=== PATIENT | male | born 1975 | race Caucasian/White ===

== ENCOUNTER 2019-05-09 09:47 | Emergency (ER) | payer OTHER, SELFPAY ==
--- NOTE | ~2019-05-09 | XR_ITS ---
XR shoulder RT min 2V DATE: 05/09/2019 10:02 INDICATION: Anterior superior right shoulder pain/bump TECHNIQUE: 4 views COMPARISON: None FINDINGS: No fracture, dislocation, periosteal reaction or bone destruction. Normal alignment at the acromioclavicular and glenohumeral joints. No abnormal soft tissue calcification. IMPRESSION: Negative Reviewed, dictated and finalized at location A. IMPRESSION: Negative
[2019-05-09 09:58] VITALS: BP 138/88; PULSE 71; RESP 16; TEMP 36.9; O2SAT 100
--- NOTE | 2019-05-09 11:07 | ED.UPPEXIN ---
HPI - Extremity Injury (Upper) General Chief Complaint: Extremity Injury, Upper <Jolanta Michelle PA-C - Last Filed: 05/09/19 11:18> Stated Complaint: right shoulder pain/fall <Jolanta Michelle PA-C - Last Filed: 05/09/19 11:18> Time Seen by Provider: 05/09/19 09:50 <Jolanta Michelle PA-C - Last Filed: 05/09/19 11:18> Source: patient <Jolanta Michelle PA-C - Last Filed: 05/09/19 11:18> Mode of arrival: ambulatory <BAR Ackerman Last Filed: 05/09/19 11:18> Limitations: no limitations <Jolanta Michelle PA-C - Last Filed: 05/09/19 11:18> History of Present Illness HPI narrative: Patient presents with chief complaint of anterior right shoulder pain that began after tripping down the last step with 2 while at a fire earlier this morning. Patient states he believes he put his hand outward and landed but he is not sure. Patient denies any loss of range of motion but reports some discomfort with some movements. Patient denies any weakness in the extremity. Patient denies any head injury, neck pain, loss of consciousness, chest pain, shortness of breath, nausea, vomiting, diarrhea, changes in vision or hearing or any other symptoms. Patient reports his medical history is significant for hypertension but denies any other health concerns. <Jolanta Michelle PA-C - Last Filed: 05/09/19 11:18> Related Data Home Medications: Home Medications Medication Instructions Recorded Confirmed amlodipine 5 mg tablet 5 mg PO DAILY 01/13/19 irbesartan 300 mg tablet 300 mg PO DAILY 01/13/19 <BAR Ackerman Last Filed: 05/09/19 11:18> Allergies/Adverse Reactions: Allergies Allergy/AdvReac Type Severity Reaction Status Date / Time No Known Allergies Allergy Verified 01/13/19 11:29 <Jolanta Michelle PA-C - Last Filed: 05/09/19 11:18> Review of Systems Review of Systems: Narrative: CONSTITUTIONAL: Denies fever, chills, or sweats. EYES: Denies visual changes, redness, or discharge. ENT: Denies rhinorrhea, congestion, sore throat, or otalgia. CARDIOVASCULAR: Denies chest pain, palpitations, or edema. RESPIRATORY: Denies cough or dyspnea. GASTROINTESTINAL: Denies abdominal pain, nausea, vomiting, or diarrhea. GENITOURINARY: Denies dysuria or hematuria. SKIN: Denies rash or itching. MUSCULOSKELETAL: Reports right shoulder pain denies back pain or myalgia. NEUROLOGIC: Denies headache, numbness, dizziness, or weakness. PSYCHIATRIC: Denies anxiety or depression. <Jolanta Michelle PA-C - Last Filed: 05/09/19 11:18> [facility] Past Medical History Medical History: Medical History (Updated 05/09/19 @ 11:14 by Jolanta Michelle PA-C) Hypertension <Jolanta Michelle PA-C - Last Filed: 05/09/19 11:18> Family History Family History: Family History (Updated 09/22/15 @ 23:19 by DOCTOR UNKNOWN) Mother Family history of mental disorder Depression Father Depression Family history of diabetes mellitus in first degree relative <Jolanta Michelle PA-C - Last Filed: 05/09/19 11:18> Social History Social History: Social History Smoking status: Former smoker Smoking end date: 02/24/09 Alcohol intake: current Gender identity (if verbalized by the patient): Male <Jolanta Michelle PA-C - Last Filed: 05/09/19 11:18> Exam Narrative: Exam Narrative: GENERAL: Well-appearing, well-nourished, and in no acute distress. HEAD: Normocephalic, atraumatic. No outward signs of injury or tenderness. EYES: PERRLA and EOMI. ENT: Nares clear, no rhinorrhea or epistaxis. Mucous membranes moist. Oropharynx without tonsillar hypertrophy exudate or other lesions. Bilateral TMs pearly fierro nonbulging NECK: Nontender to palpation. No loss of range of motion. Supple. No adenopathy or masses. CHEST: Clear to auscultation. No respiratory distress. No wheezes rales or rhonchi HEART: Regular rate and rhythm. EXTREMITIES: Normal range of motion. Slight pain elicited with external rot
[2019-05-09 11:40] VITALS: BP 136/65; PULSE 72; RESP 16; O2SAT 99
== END 2019-05-09 11:47 | disposition home or self-care (01) ==
PROVIDERS: Emergency Provider General Practice; PCP Family Medicine
DX: S46.911A Strain of unspecified muscle, fascia and tendon at shoulder and upper arm level, right arm, initial encounter (principal); I10 Essential (primary) hypertension; W10.9XXA Fall (on) (from) unspecified stairs and steps, initial encounter
CPT/HCPCS: 73030; 99283

== ENCOUNTER 2022-12-05 08:16 | Outpatient (CLI) | payer OTHER, SELFPAY ==
[2022-12-05 09:23] LABS: Hematocrit 44.4 % (42.0-52.0); Hemoglobin 15.5 g/dL (14.0-18.0); Mean Corpuscular HGB Conc 34.9 g/dl (32-36); Mean Corpuscular Hemoglobin 33.5 pg (26-34); Mean Corpuscular Volume 96.1 fl (80-100); Mean Platelet Volume 10.5 fl (7.4-10.4); Platelet Count Result 196 k/mm3 (150-375); Red Blood Count 4.62 M/mm3 (4.6-6.20); Red Cell Distribution Width 12.1 % (11.5-14.5)
[2022-12-05 09:39] LABS: Alanine Aminotransferase 28 U/L (6-50); Albumin Level 4.4 g/dL (3.5-5.1); Alkaline Phosphatase 44 U/L (38-126); Anion Gap 7 mmol/L (8-16); Aspartate Amino Transferase 24 U/L (17-59); Bilirubin,Total 0.7 mg/dL (0.2-1.3); Blood Urea Nitrogen 13 mg/dL (9-20); Carbon Dioxide 28 mmol/L (22-30); Chloride 101 mmol/L (98-107); Cholesterol 158 mg/dL (0-200); Estimated Glomerular Filt Rate > 60; Glucose 97 mg/dL (65-110); HDL Direct 54 mg/dL; Potassium 3.9 mmol/L (3.4-5.0); Sodium 136 mmol/L (137-145); Triglycerides 132 mg/dL (<150)
[2022-12-05 09:45] LABS: Add Urine Microscopic? NO; Appearance Urine Clear (Clear); Bilirubin Urine Negative (Negative); Blood Urine Negative (Negative); Color Urine Yellow (Yellow); Glucose Urine UA Negative (Negative); Ketones Urine Negative (Negative); Leukocyte Esterase Ur Negative LEU/UL (NEGATIVE); Nitrate Urine Negative (Negative); Protein Urine Negative (Negative); Urobilinogen Urine 0.2 mg/dL (<2.0); pH Urine 6.5 (5.0-9.0)
[2022-12-05 09:50] LABS: LDL Cholesterol Direct 78 mg/dL
[2022-12-05 10:05] LABS: Hemoglobin A1C 4.6 % (<5.7)
== END 2022-12-05 08:17 | disposition home or self-care (01) ==
LOC: ANHLAB 08:17
PROVIDERS: PCP Family Medicine; Visit Provider Family Medicine
DX: E78.1 Pure hyperglyceridemia (principal); I10 Essential (primary) hypertension; R73.01 Impaired fasting glucose; Z00.00 Encounter for general adult medical examination without abnormal findings
CPT/HCPCS: 36415; 80053; 80061; 81003; 83036; 84443; 85027

== ENCOUNTER 2023-05-12 09:23 | Outpatient (CLI) | payer OTHER, SELFPAY ==
[2023-05-12 10:27] LABS: Alanine Aminotransferase 20 U/L (6-50); Albumin Level 4.7 g/dL (3.5-5.1); Alkaline Phosphatase 50 U/L (38-126); Anion Gap 8 mmol/L (8-16); Aspartate Amino Transferase 23 U/L (17-59); Bilirubin,Total 1.1 mg/dL (0.2-1.3); Blood Urea Nitrogen 10 mg/dL (9-20); Calcium 9.4 mg/dL (8.4-10.2); Carbon Dioxide 27 mmol/L (22-30); Chloride 103 mmol/L (98-107); Estimated Glomerular Filt Rate > 60; Glucose 105 mg/dL (65-110); Potassium 3.9 mmol/L (3.4-5.0); Sodium 138 mmol/L (137-145)
== END 2023-05-12 09:24 | disposition home or self-care (01) ==
LOC: ANHLAB 09:24
PROVIDERS: PCP Family Medicine; Visit Provider Family Medicine
DX: I10 Essential (primary) hypertension (principal)
CPT/HCPCS: 36415; 80053

== ENCOUNTER 2023-06-12 07:49 | Day surgery (SDC) | payer OTHER, SELFPAY ==
[2023-05-06 11:47] VITALS: BMI 29.5
[2023-06-12 09:00] VITALS: BP 130/99; PULSE 68; RESP 18; TEMP 36.6; O2SAT 99; BMI 29.5
[2023-06-12] MEDS: LACTATED RINGERS 1,000 ML 150 ML IV CONT (09:09)
--- NOTE | 2023-06-12 09:13 | WPDANESEPPF ---
Anes - Initial Pre Proc Eval Procedure: Operation Date: 06/12/23 10:00 Proposed Procedures p Screening Colonoscopy - Santiago Faith MD Date/Time: 06/12/23 09:13 Surgeon: Santiago Faith MD Pre Op Diagnosis: Neoplasm Screening of Colon and Rectum Patient Data Age: 47 Gender: M Height: 1.83 m Weight: 98.8 kg Last Vital Signs Temp 36.6 C 06/12/23 09:00 Pulse 68 06/12/23 09:00 Resp 18 06/12/23 09:00 BP 130/99 H 06/12/23 09:00 Pulse Ox 99 06/12/23 09:00 O2 Del Method Room Air 06/12/23 09:00 Allergies Allergy/AdvReac Type Severity Reaction Status Date / Time No Known Allergies Allergy Verified 05/26/23 13:56 Home Medications Medication Instructions Recorded Confirmed Type valacyclovir 1 gram tablet See Rx Instructions .Route 03/05/22 06/12/23 Rx (Valtrex) .COMPLEX #8 tabs amlodipine 5 mg tablet 5 mg PO DAILY 05/26/23 06/12/23 History irbesartan 300 mg tablet 300 mg PO DAILY 05/26/23 06/12/23 History Patient hx anesthesia problems: none Family hx anesthesia problems: none Results Review: All pre-operative results and documents have been reviewed as part of the pre-operative evaluation. [facility] Past Medical History Medical History Hypertension Surgical History Surgical History History of lumbar fusion L4-5, L5-S1 Family History Family History Mother Family history of mental disorder Depression Father Depression Family history of diabetes mellitus in first degree relative Social History Social History Smoking packs per day: 1.5 Smoking cigarettes per day: 30.0 Years smoked: 10 Smoking pack-years: 15.00 Smoking status: Current every day smoker Tobacco type: e-cigarettes/vaping Second hand tobacco smoke exposure: No Smoking end date: 02/24/09 Alcohol intake: current Drinks per week: 30 Alcohol use details: pt states he drinks 10 drinks a day, three times a week Substance use: never Substance use type: does not use Living arrangements: with family Occupation/Education: occupation Gender identity (if verbalized by the patient): Male Anes - Eval Final PreProcedure Day of Procedure 06/12/23 09:13 Patient weight: overweight Heart: regular rate and rhythm Lungs: decreased breath sounds Airway: Mallampati scale Neurological: alert and oriented Last oral intake: >/= 8 hours ASA classification: II Emergent: no Anesthetic plan: proceed Anesthesia type and monitoring: general GIVS and standard monitoring Results Review: All pre-operative results and documents have been reviewed as part of the pre-operative evaluation. Informed Consent: The patient's anesthetic plan and its attendant risks and benefits were discussed with the patient/family/POA. Questions were solicited and answers provided to the satisfaction of the patient/family/POA.
--- NOTE | 2023-06-12 09:32 | PM.HPGS ---
History of Present Illness History of Present Illness Consent: Risks, benefits, and alternatives have been discussed and questions answered. Patient agrees to proceed with procedure. Chief complaint: Neoplasm Screening of Colon and Rectum Narrative: Rafael Werner is a 47 year old male presents for screening colonoscopy. Patient's current weight appetite and bowel habits are normal. He denies abdominal pain. Patient has had no bleeding. Family history is noncontributory. Review of Systems Review of Systems: All systems reviewed & are unremarkable except as noted in HPI and below PMFSH Past Medical History Medical History Hypertension Surgical History Surgical History History of lumbar fusion L4-5, L5-S1 Family History Family History Mother Family history of mental disorder Depression Father Depression Family history of diabetes mellitus in first degree relative Social History Social History Smoking packs per day: 1.5 Smoking cigarettes per day: 30.0 Years smoked: 10 Smoking pack-years: 15.00 Smoking status: Current every day smoker Tobacco type: e-cigarettes/vaping Second hand tobacco smoke exposure: No Smoking end date: 02/24/09 Alcohol intake: current Drinks per week: 30 Alcohol use details: pt states he drinks 10 drinks a day, three times a week Substance use: never Substance use type: does not use Living arrangements: with family Occupation/Education: occupation Gender identity (if verbalized by the patient): Male Meds Home Medications and Allergies Home Medications Medication Instructions Recorded Confirmed Type valacyclovir 1 gram tablet See Rx Instructions .Route 03/05/22 06/12/23 Rx (Valtrex) .COMPLEX #8 tabs amlodipine 5 mg tablet 5 mg PO DAILY 05/26/23 06/12/23 History irbesartan 300 mg tablet 300 mg PO DAILY 05/26/23 06/12/23 History Allergies Allergy/AdvReac Type Severity Reaction Status Date / Time No Known Allergies Allergy Verified 05/26/23 13:56 Vital Signs Vital Signs - 24 hr 06/12/23 09:00 Temperature 97.8 F Pulse Rate 68 Respiratory Rate 18 Blood Pressure 130/99 H Pulse Oximetry 99 Oxygen Delivery Room Air Exam Narrative: Physical exam reveals patient to be alert. Vital signs stable. HEENT exam is unremarkable. Patient is anicteric. Lungs are clear to auscultation and to percussion. Is without murmur or extra sounds. Abdomen bowel sounds are present soft nontender with no organomegaly. Digital external rectal exam is normal. Assessment and Plan Assessment and plan (1) Encounter for screening colonoscopy: Code(s): Z12.11 - Encounter for screening for malignant neoplasm of colon Status: Acute Assessment and Plan: Patient presents today for screening colonoscopy. He appears to be at average risk for colon polyps.
[2023-06-12 10:46] VITALS: BP 129/83; PULSE 74; RESP 18; O2SAT 98
[2023-06-12 10:56] VITALS: BP 117/91; PULSE 62; RESP 20; O2SAT 98
--- NOTE | 2023-06-12 10:58 | WPDANESPN ---
Anes - Prog Note Post-Op Date/Time: 06/12/23 10:58 Cardiovascular status: normal Respiratory status: normal Airway patency: baseline Mental status: baseline Post-Op hydration status: normal Vital Signs: Last Vital Signs Temp 36.6 C 06/12/23 09:00 Pulse 74 06/12/23 10:46 Resp 18 06/12/23 10:46 BP 129/83 06/12/23 10:46 Pulse Ox 98 06/12/23 10:46 O2 Del Method Room Air 06/12/23 10:46 Pain Score (VAS): 0 I/O: Intake & Output 06/11/23 06/12/23 06/12/23 23:59 07:59 15:59 Intake Total 400 Balance 400 Patient Feedback: Patient satisfied with anesthetic care.
[2023-06-12 11:06] VITALS: BP 135/91; PULSE 64; RESP 20; O2SAT 100
== END 2023-06-12 11:09 | disposition home or self-care (01) ==
PROVIDERS: PCP Family Medicine; Visit Provider Internal Medicine Gastroenterology
PROC: 0DJD8ZZ Inspection of Lower Intestinal Tract, Via Natural or Artificial Opening Endoscopic (ICD-10-PCS; CPT 45378; principal; 2023-06-12 10:00)
DX: Z12.11 Encounter for screening for malignant neoplasm of colon (principal); K64.8 Other hemorrhoids
CPT/HCPCS: 45378

== ENCOUNTER 2024-01-01 08:05 | Outpatient (CLI) | payer OTHER, SELFPAY ==
[2024-01-01 08:45] LABS: Hemoglobin 15.8 g/dL (14.0-18.0); Mean Corpuscular HGB Conc 34.3 g/dl (32-36); Mean Corpuscular Hemoglobin 33.4 pg (26-34); Mean Corpuscular Volume 97.3 fl (80-100); Mean Platelet Volume 10.2 fl (7.4-10.4); Platelet Count Result 192 k/mm3 (150-375); Red Blood Count 4.73 M/mm3 (4.6-6.20); Red Cell Distribution Width 12.2 % (11.5-14.5); White Blood Count 6.1 K/mm3 (4.5-10.0)
[2024-01-01 09:00] LABS: Add Urine Microscopic? NO; Appearance Urine Clear (Clear); Bilirubin Urine Negative (Negative); Blood Urine Negative (Negative); Color Urine Yellow (Yellow); Glucose Urine UA Negative (Negative); Ketones Urine Negative (Negative); Leukocyte Esterase Ur Negative LEU/UL (Negative); Nitrate Urine Negative (Negative); Protein Urine Negative (Negative); Specific Grav Ur 1.012 (1.001-1.035); Urobilinogen Urine 0.2 mg/dL (<2.0)
[2024-01-01 09:42] LABS: Sodium 136 mmol/L (137-145)
[2024-01-01 09:45] LABS: Alanine Aminotransferase 21 U/L (6-50); Albumin Level 4.4 g/dL (3.5-5.1); Alkaline Phosphatase 41 U/L (38-126); Anion Gap 7 mmol/L (4-12); Aspartate Amino Transferase 31 U/L (17-59); Bilirubin,Total 0.8 mg/dL (0.2-1.3); Blood Urea Nitrogen 12 mg/dL (9-20); Calcium 8.7 mg/dL (8.4-10.2); Carbon Dioxide 29 mmol/L (22-30); Chloride 100 mmol/L (98-107); Cholesterol 152 mg/dL (0-200); Estimated Glomerular Filt Rate > 60; Glucose 105 mg/dL (65-110); HDL Direct 55 mg/dL; Potassium 4.6 mmol/L (3.4-5.0); Triglycerides 130 mg/dL (<150)
[2024-01-01 09:54] LABS: LDL Cholesterol Direct 70 mg/dL
[2024-01-01 10:16] LABS: Hemoglobin A1C 4.9 % (<5.7)
== END 2024-01-01 08:06 | disposition home or self-care (01) ==
LOC: ANHLAB 08:07
PROVIDERS: PCP Family Medicine; Visit Provider Family Medicine
DX: R73.01 Impaired fasting glucose (principal); I10 Essential (primary) hypertension; E78.5 Hyperlipidemia, unspecified; R35.1 Nocturia; Z00.00 Encounter for general adult medical examination without abnormal findings
CPT/HCPCS: 36415; 80053; 80061; 81003; 83036; 84443; 85027

== ENCOUNTER 2024-05-13 11:22 | Outpatient (CLI) | payer OTHER, SELFPAY ==
[2024-05-13 12:00] LABS: Alanine Aminotransferase 19 U/L (6-50); Albumin Level 4.5 g/dL (3.5-5.1); Alkaline Phosphatase 48 U/L (38-126); Anion Gap 13 mmol/L (4-12); Aspartate Amino Transferase 16 U/L (17-59); Bilirubin,Total 0.8 mg/dL (0.2-1.3); Blood Urea Nitrogen 11 mg/dL (9-20); Calcium 9.1 mg/dL (8.4-10.2); Carbon Dioxide 24 mmol/L (22-30); Chloride 106 mmol/L (98-107); Estimated Glomerular Filt Rate > 60; Glucose 96 mg/dL (65-110); Potassium 3.8 mmol/L (3.4-5.0); Sodium 143 mmol/L (137-145)
--- OUTSIDE RECORDS SUMMARY | 2024-05-13 12:21 | XMS_ITS | Clinical Summary ---
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 Gender Identity Not on file Sexual Orientation Not on file Plan of Treatment Health Maintenance Due Date Last Done Comments Hepatitis C Virus (HCV) Screening 1974 TdaP Immunization 1974 Hepatitis B Immunization (1 of 3 - 19+ 3-dose series) 1993 Colonoscopy 10/12/2019 Colorectal Cancer Screening 10/12/2019 Influenza Immunization (#1) 2023 SARS-COV-2 Immunization (2023-25 season) 2023 04/25/2020, 03/28/2020 Respiratory Syncytial Virus (RSV) Immunization (Adult) (1 - 1-dose 75+ series) 2049 Meningococcal Immunization (ACWY) Aged Out No longer eligible b ased on patient's age to complete this topic Pneumococcal Immunization Combined Aged Out No longer eligible b ased on patient's age to complete this topic Rotavirus Immunization Aged Out No lo nger eligible based on patient's age to complete this topic
--- OUTSIDE RECORDS SUMMARY | 2024-05-13 12:21 | XMS_ITS | Clinical Summary ---
Author Organization [facility] [place] [facility] Address [address] [place] [address] Care Team Providers Care Spinner Open End Name Role Phone Unavailable Primary Care Provider Unavailabl e Source Comments [facility] [place] [facility],non-owned Affiliates and Associated Physician Practices is amultiple site organization consisting of ambulatory clinics and hospital sitesin [place], [place], [place] and [place]. This disclosure is being madepursuant to the Care Everywhere program and may not contain all information available regarding this patient. Last updated 17.[facility] [employer] Active Problems Problem Noted Date Diagnosed Date Annual physical exam - [facility] ent 11/22/2020 Social History Tobacco Use Types Packs/Day Years Used Date Smoking Tobacco: Never Assessed Sex and Gender Information Value Date Recorded Sex Assigned at Not on file Gender Identity Not on file Sexual Orientation Not on file Plan of Treatment Health Maintenance Due Date Last Done Comments COLOGUARD (AGES 45-75) - COL ON CA SCREENING 1974 COLON MONITORING 1974 COLONOSCOPY - COLON CA SCREENING 1974 CT COLONOGRAPHY - COLON CA SCREENING 1974 Colorectal Cancer Screening 1974 FIT - COLON CA SCREENING 1974 FLEX SIG - COLON CA SCREENING 1974 HIV SCREENING 1989 HEPATITIS C SCREENING 10/06/1992 DTAP/TDAP/TD VACCINES (1 - Tdap) 1993 HEPATITIS B VACCINE (1 of 3 - 19+ 3-dose series) 1993 COVID-19 VACCINE ( - 2023-2 5 season) 2023 04/25/2020, 03/28/2020 INFLUENZA VACCINE (#1) 2023 DEPRESSION SCREENING 02/25/2024 ZOSTER VACCINE (1 of 2) 2024 LIPID TESTING 02/07/2026 02/07/2021 HIB VACCINE Aged Out No longer eligi ble based on patient's age to complete this topic HPV VACCINE Aged Out No longer eligi ble based on patient's age to complete this topic MENINGOCOCCAL (Group B) VACCINE SHARED DECISION-MAKING Aged Out No longer eligible based on patient's age to complete this topic MENINGOCOCCAL GROUPS A/C/Y/W VACCINE Aged Out No longer eligible b ased on patient's age to complete this topic PNEUMOCOCCAL VACCINE Aged Out No long er eligible based on patient's age to complete this topic Procedures Procedure Name Priority Date/Time Associated Diagnosis Comments LIPID PROFILE W TCHOL/HDL Routine 02/07/2021 8:30 AM [facility] Annual physical exam - [facility] from Last 3 Months or Most Recently Relevant to Health Maintenance Results * (ABNORMAL) LIPID PROFILE W TCHOL/HDL (02/07/2021 8:30 AM [facility]) Cholesterol 147 100 - 199 mg/dL [facility] ACCOUNT BILL Triglycerides 155(H) 0 - 149 mg/dL [facility] ACCOUNT BILL HDL Cholesterol 49 >39 mg/dL [facility] ACCOUNT BILL VLDL Calculated 27 5 - 40 mg/dL [facility] ACCOUNT BILL LDL Calculated 71 0 - 99 mg/dL [facility] ACCOUNT BILL Comment NOT NEEDED [facility] ACCOUNT BILL Comment:Ancillary determined the test is not needed. Cholesterol/HDL Ratio 3.0 0.0 - 5.0 ratio [facility] ACCOUNT BILL Comment: T. Chol/HDL Ratio Men Women 1/2 Avg.Risk 3.4 3.3 Avg.Risk 5.0 4.4 2X Avg.Risk 9.6 7.1 3X Avg.Risk 23.4 11.0 FASTING Blood BLOOD SPECIMEN / Unknown 02/07/2021 8:30 AM [facility] 02/07/2021 Narrative Resulting Agency Comment Lab Testing performed at: [facility] [address] [place] [id number] Nils Patel MD LAB - CHEMISTRY RADHA COATS [facility] ACCOUNT BILL [address] [place] [id number] from Last 3 Months or Most Recently Relevant to Health Maintenance
== END 2024-05-13 11:23 | disposition home or self-care (01) ==
LOC: ANHLAB 11:23
PROVIDERS: PCP Family Medicine; Visit Provider Physician Assistant
DX: I10 Essential (primary) hypertension (principal)
CPT/HCPCS: 36415; 80053